=== PATIENT | male | born 1975 | race Caucasian/White ===

== ENCOUNTER 2020-09-25 15:05 | Emergency (ER) | payer SELFPAY ==
[~2020-09-25] VITALS: Ht 165.1 cm; Wt 93.0 kg
[2020-09-25] MEDS ORDERED: IBUP-2029 MT (16:13)
[2020-09-25] MEDS ORDERED: IBUPROFEN 800MG TABLET PO ONE (16:15)
[2020-09-25 17:08] VITALS: BP 140/98
== END 2020-09-25 17:09 | disposition home or self-care (01) ==
LOC: ER 15:05
DX: S10.83XA Contusion of other specified part of neck, initial encounter (principal); S30.0XXA Contusion of lower back and pelvis, initial encounter; S60.212A Contusion of left wrist, initial encounter; W22.8XXA Striking against or struck by other objects, initial encounter; Y93.89 Activity, other specified; Y92.89 Other specified places as the place of occurrence of the external cause; Y99.8 Other external cause status
CPT/HCPCS: 99282